=== PATIENT | female | born 1935 | race Native Hawaiian/Other Pacific Islander ===

== ENCOUNTER → 2018-10-24 | Outpatient (CLI) | payer MEDICARE, OTHER ==
[~2018-10-24] MED LIST: CALC-590 PO; IOVERSOL 350 MG/ML 100 ML VIAL ONE; METF-446 PO; METO5TAB87 PO; OMEG300C3 PO; SIMV-260 PO; SODIUM CHLORIDE 0.9% 100 ML ONE; VALS40TA4 PO
== END | disposition home or self-care (01) ==
LOC: RADMN 09:00
PROVIDERS: ATTEND Internal Medicine
DX: M47.816 Spondylosis without myelopathy or radiculopathy, lumbar region (principal); M41.86 Other forms of scoliosis, lumbar region
CPT/HCPCS: 74177; J7050; Q9967

== ENCOUNTER → 2023-09-13 | Outpatient (CLI) | payer MEDICARE, MEDICAID ==
[~2023-09-13] MED LIST changes: -IOVERSOL 350 MG/ML 100 ML VIAL ONE; -SODIUM CHLORIDE 0.9% 100 ML ONE
== END | disposition home or self-care (01) ==
LOC: CARDPV 08:47
PROVIDERS: ATTEND Internal Medicine
DX: M25.762 Osteophyte, left knee (principal); M25.462 Effusion, left knee
CPT/HCPCS: 76881; 73562-TC